=== PATIENT | female | born 1990 | race Caucasian/White ===

== ENCOUNTER 2022-12-10 08:25 | Outpatient (CLI) | payer OTHER, SELFPAY ==
[2022-12-10 12:19] LABS: Cholesterol* 172 mg/dL (90-199)
[2022-12-10 12:20] LABS: Glucose* 84 mg/dL (60-115); HDL Cholesterol* 84 mg/dL (>=50); LDL Cholesterol Calculated 77 mg/dL (<100); Triglycerides* 56 mg/dL (40-149)
== END 2022-12-10 08:26 | disposition home or self-care (01) ==
PROVIDERS: Visit Provider Physician Assistant
DX: Z01.419 Encounter for gynecological examination (general) (routine) without abnormal findings (principal); Z13.1 Encounter for screening for diabetes mellitus; Z13.6 Encounter for screening for cardiovascular disorders; Z12.4 Encounter for screening for malignant neoplasm of cervix
CPT/HCPCS: 80061; 82947

== ENCOUNTER 2023-09-03 14:15 | Outpatient (CLI) | payer OTHER, SELFPAY | END 2023-09-03 14:16 | disposition home or self-care (01) | LOC: NFLDREF 09-07 11:07 | PROVIDERS: PCP Dermatology; Referring Provider Dermatology; Visit Provider Obstetrics & Gynecology | DX: N89.8 Other specified noninflammatory disorders of vagina (principal) | CPT/HCPCS: 87491; 87591 ==